=== PATIENT | male | born 1990 | race Two or more races ===

== ENCOUNTER 2018-10-11 19:09 | Emergency (ER) | payer MEDICAID ==
[~2018-10-11] VITALS: Ht 177.8 cm; Wt 77.3 kg
[~2018-10-11 19:09] MED LIST: IBUP-1984 PO
--- NOTE | 2018-10-11 19:37 | NUR ---
PT STATES 24 HRS SINCE LAST FENTANYL USE, DOES NOT KNOW AMOUNT/DOSAGE, STATES HE HAS N/V WITH BLOOD, ADMITS TO ETOH.
[2018-10-11 20:18] LABS: URINE AMPHETAMINE SCREEN NEGATIVE (Neg); URINE BARBITUATE SCREEN NEGATIVE (Neg); URINE BENZODIAZEPINES SCREEN POSITIVE (Neg); URINE CANNABINOID SCREEN POSITIVE (Neg); URINE COCAINE SCREEN POSITIVE (Neg); URINE METHADONE SCREEN NEGATIVE (Neg); URINE OPIATE SCREEN NEGATIVE (Neg); URINE PHENCYCLIDINE SCREEN NEGATIVE (Neg)
[2018-10-11] MEDS ORDERED: normal saline 1000ML IV soln IVB ONE (20:50)
--- NOTE | 2018-10-11 21:15 | NUR ---
DR YI AT BEDSIDE WITH PT
[2018-10-11] MEDS ORDERED: ONDA4TAB6 PO (21:25)
[2018-10-11] MEDS ORDERED: ondansetron/PF 4mg/2ml inj IV ONE (21:25)
[2018-10-11] MEDS ORDERED: famotidine/PF 10 mg/ml inj IV ONE (21:25)
[2018-10-11] MEDS ORDERED: pantoprazole 40 MG vial IV ONE (21:25)
[2018-10-11 21:37] VITALS: BP 126/74
[2018-10-11] MEDS ORDERED: sucralfate 1gm/10ml UD suspension PO SCH (22:00)
[2018-10-11] MEDS ORDERED: LIDOcaine Viscous 15ml cup MM PRN (22:00)
[2018-10-11] MEDS ORDERED: mag hydrox/Alum hydrox/simeth 30ml oral suspension PO ONE (22:00)
== END 2018-10-11 22:22 | disposition home or self-care (01) ==
LOC: ER 19:09
DX: F11.23 Opioid dependence with withdrawal (principal); F13.10 Sedative, hypnotic or anxiolytic abuse, uncomplicated; R19.7 Diarrhea, unspecified; R11.2 Nausea with vomiting, unspecified
CPT/HCPCS: 80305; 96361; 96374; 96375; 99283; C9113; J2405; J3490; J7030

== ENCOUNTER 2020-05-13 19:51 | Emergency (ER) | payer MEDICAID ==
[~2020-05-13] VITALS: Ht 182.9 cm; Wt 76.4 kg
[~2020-05-13 19:51] MED LIST changes: +ONDA4TAB6 PO
[2020-05-13 22:35] VITALS: BP 111/74
== END 2020-05-13 22:36 ==
LOC: ER 19:51
DX: F10.929 Alcohol use, unspecified with intoxication, unspecified (principal); Z00.8 Encounter for other general examination; Z90.49 Acquired absence of other specified parts of digestive tract; Z79.899 Other long term (current) drug therapy
CPT/HCPCS: 99284